=== PATIENT | male | born 1990 | race Caucasian/White ===

== ENCOUNTER 2025-04-27 10:58 | Emergency (ER) | payer BC, SELFPAY ==
[2025-04-27 11:07] VITALS: BP 114/79
--- NOTE | 2025-04-27 12:20 | ED.GENMED ---
History of Present Illness
General
Chief Complaint: Back Pain
Source: patient
Exam Limitations: none
Time Seen by Provider: 04/27/25 12:01
History of Present Illness
History of Present Illness:
34yoM with no significant past medical history presenting with his parents for evaluation of low back pain. Pain initially started 1 week ago. He states he reached for something and his back locked up. He gradually started to feel better the pain
worsened again 2 days ago after a coughing fit. He describes the pain as excruciating. Pain is worse in the left lower back but is bilateral and intermittently radiates to the legs. He has been taking ibuprofen without much relief. He also took
a friend's Flexeril which did not seem to help. No paresthesias, fevers, incontinence, difficulty urinating. No prior history of back surgeries, malignancy, or IV drug use. Of note, patient has had back issues in the past and previously underwent
physical therapy.
Phy Exam
General Physical Exam
General Presentation: well appearing and no apparent distress
General Skin: warm and dry
General Habitus: normal
General Mental: alert
ENT Exam
ENT Exam: normocephalic
Cardiovascular Exam
Cardiovascular Exam: normal peripheral pulses (2+ DP pulses bilaterally)
Pulmonary Exam
Pulmonary Exam: no respiratory distress
Gastrointestinal Exam
Gastrointestinal Exam: non tender, soft and non distended
Neurological Exam
Neurological Exam: alert
[place] Coma Scale
Eye Opening: Spontaneous
Verbal Response: Oriented
Motor Response: Obeys Commands
GCS Total Score: 15
Musculoskeletal Exam
Musculoskeletal Exam: other (No tenderness to palpation of lumbar region but pain is elicited with any sort of movement. No skin changes.)
Skin Exam
Skin Exam: normal color and warm/dry
Psychiatric Exam
Psychiatric Exam: normal mood/affect
Course
Orders/Labs/Results
Orders:
Orders
04/27/25 12:19
Acetaminophen [Tylenol] 1,000 mg PO NOW STA
Dexamethasone Sod Phosphate [Decadron] 10 mg IV NOW STA
Ketorolac [Toradol] 30 mg IV NOW STA
diazePAM [Valium Injection] 5 mg IV NOW STA
CR Lumbar Spine Comp Min 4 Vw* Urgent
Comment:
Reason For Exam: low back pain
Vital Signs
Initial and Last Documented VS:
Initial Vital Signs
Temp Pulse Resp BP Pulse Ox
97.5 F 70 16 114/79 99
04/27/25 11:07 04/27/25 11:07 04/27/25 11:07 04/27/25 11:07 04/27/25 11:07
Last Documented Vital Signs
Temp Pulse Resp BP Pulse Ox
97.5 F 65 18 122/78 99
04/27/25 11:07 04/27/25 14:49 04/27/25 14:49 04/27/25 14:49 04/27/25 14:49
MDM/Problems Addressed
Differential Diagnosis Includes:
34yoM here with low back pain x 1 week. Started after reaching out with his arm. Worse x 2 days after a coughing fit. Worse with movement. No red flags in history including no fevers, saddle anesthesia, incontinence, hx of IV drug use. VSS. Patient
appears uncomfortable but is non-toxic. Patient having difficulty moving on stretcher due to pain. Lower extremities are neurovascularly intact. Differential diagnosis includes: muscular strain/spasm, herniated disc, doubt fracture, no s/s to
suggest cauda equina syndrome
Initial ED plan: Check lumbar spine x-rays. IV Valium, Toradol, Decadron, and Tylenol for pain.
*Pulse Oximetry
SaO2: 99
Oxygen Mode of Delivery: Room air
Patient hypoxic: no
*Critical Care Note
Total Time (30-74mins, 75-104mins- exclusive of procedures): Not Applicable
Update Note
Update Note:
X-rays are unremarkable. Patient feeling improved on reassessment. Suspect muscular pain. Supportive care discussed. Will provide short-term prescription for Valium. He was advised to follow-up with PCP and orthopedics. ED return precautions
reviewed and he was discharged in stable condition.
ED Attending Note
-
Portions of this chart may have been created with voice recognition software.� Occasional wrong word or��sound alike� substitutions may have occurred due to the inherent limitations of voice recognition software.
Discharge Plan
Departure
Patient Disposition: Home (Routine Discharge)
Date of Disposition: 04/27/25
Time of Disposition: 14:20
Patient with high blood pressure during this ER visit?: No
Discharge Problem:
Acute low back pain
Instructions: Low Back Pain (DC)
Prescriptions:
New
diazepam [Valium] 5 mg tablet
5 mg PO TID PRN (Reason: muscle spasms) Qty: 9 0RF
Referrals:
Moises Holliday MD [Active, Orthopedics]
UNKNOWN - PT DOES,NOT KNOW [Family Provider]
Activity Restrictions/Additional Instructions:
Take ibuprofen 600mg and Tylenol 650mg every 6 hours as needed. Take Valium (muscle relaxer) only as needed for breakthrough pain/severe spasms.
Please follow-up with orthopedics. Return to the ER with any new or worsening symptoms.
Interventions
Interventions:
*Risk Screen - Suicide Last Done: 04/27/25 11:07
*Neglect/Abuse Screening Last Done: 04/27/25 11:07
*Nursing Disposition Last Done: 04/27/25 14:52
ED-Musculoskeletal Assessment Last Done: 04/27/25 12:25
Discharge Date and Time
Discharge Date/Time: 04/27/25 14:53
Print Language: BULGARIAN
[2025-04-27] MEDS: TORADOL 30 MG IV (12:36)
[2025-04-27] MEDS: VALIUM INJECTION 5 MG IV (12:36)
[2025-04-27] MEDS: DECADRON 10 MG IV (12:36)
[2025-04-27] MEDS: TYLENOL 1000 MG PO (12:36)
[2025-04-27 14:49] VITALS: BP 122/78
== END 2025-04-27 14:53 | disposition home or self-care (01) ==
LOC: EMR 10:58
PROVIDERS: EMERGENCY PHYSICIAN Emergency Medicine
DX: M54.50 Low back pain, unspecified (principal)
CPT/HCPCS: 99283; 96374; 96375; 72110